=== PATIENT | female | born 1950 | race Caucasian/White ===

== ENCOUNTER 2024-05-15 13:45 | Inpatient (IN) | payer MEDICARE ==
[~2024-05-15] VITALS: Ht 152.4 cm; Wt 56.0 kg
[2024-05-15] MEDS ORDERED: ATOR1TAB19 PO (14:10)
[2024-05-15] MEDS ORDERED: LEVO75TA4 PO (14:10)
[2024-05-15] MEDS ORDERED: AMOX875T2 PO (14:10)
[2024-05-15] MEDS ORDERED: BACTDSTA PO (14:10)
[2024-05-15] MEDS ORDERED: LEVO50TA5 (14:10)
[2024-05-15] MEDS ORDERED: ISOVUE-370 76% 100ML VIAL As Ordered ONE (15:09)
[2024-05-15 15:15] LABS: BASO % 0.2 % (0.0-1.0); EOS % 0.3 % (0.0-3.0); HEMATOCRIT 41.8 % (36.0-47.0); LYMPH # 0.9 10^3/uL (1.5-5.0); LYMPH % 13.3 % (24.0-44.0); MEAN CORPUSCULAR HEMOGLOBIN 28.7 pg (27.0-33.0); MEAN CORPUSCULAR HGB CONC 33.5 g/dl (32.0-36.5); MEAN CORPUSCULAR VOLUME 85.7 fl (80.0-96.0); MONO # 0.9 10^3/uL (0.0-0.8); MONO % 12.9 % (2.0-8.0); NEUTROPHILS # 4.8 10^3/uL (1.5-8.5); NEUTROPHILS % 72.7 % (36.0-66.0); PLATELET COUNT, AUTOMATED 141 10^3/uL (150-450); RED BLOOD COUNT 4.88 10^6/uL (4.00-5.40); WHITE BLOOD COUNT 6.6 10^3/uL (4.0-10.0)
[2024-05-15 15:21] LABS: ERYTHROCYTE SEDIMENTATION RATE 59 mm/hr (0-30)
[2024-05-15 15:25] LABS: ALBUMIN 3.4 G/DL (3.2-5.2); BILIRUBIN,DIRECT 0.1 MG/DL (<0.4); BILIRUBIN,TOTAL 0.5 MG/DL (0.3-1.2); TOTAL PROTEIN 7.2 G/DL (5.7-8.2)
[2024-05-15] MEDS ORDERED: VANCOMYCIN HCL 1,250 MG in NS 250 ML IV ONE (15:35)
[2024-05-15] MEDS: NS IV ONE (15:51)
[2024-05-15] MEDS: ACYCLOVIR IV ONE (15:51)
[2024-05-15 15:52] LABS: CALCIUM LEVEL 9.9 MG/DL (8.3-10.6); CREATININE FOR GFR 1.29 MG/DL (0.55-1.30); GLOMERULAR FILTRATION RATE 42.9 (>39); POTASSIUM SERUM 3.6 MMOL/L (3.5-5.1)
[2024-05-15] MEDS ORDERED: NS IV ONE (16:00)
[2024-05-15] MEDS ORDERED: ACYCLOVIR IV ONE (16:00)
[2024-05-15] MEDS ORDERED: MOM 30ML SUSPENSION UDC PO PRN (16:20)
[2024-05-15] MEDS ORDERED: MAALOX 30 ML SUSP *UDC PO PRN (16:20)
[2024-05-15] MEDS ORDERED: VITAD400CA PO (16:36)
[2024-05-15] MEDS ORDERED: CHEL100T4 PO (16:36)
[2024-05-15] MEDS ORDERED: ONETAB35 PO (16:36)
[2024-05-15] MEDS ORDERED: HOME MED LIST COMPLETE! XX SCH (16:40)
[2024-05-15] MEDS: VANCOMYCIN HCL 750 MG, VIAL MATE ADAPTER 1 EACH in D5W 250 ML IV ONE (17:06)
[2024-05-15 18:15] VITALS: BP 151/85; TEMP 98.8; O2SAT 92
[2024-05-15] MEDS: VANCOMYCIN HCL 500 MG in D5W MINI-BAG PLUS 100 ML IV ONE (18:44)
[2024-05-15 19:27] VITALS: BP 146/87; TEMP 97.9; O2SAT 97
[2024-05-15] MEDS: ATORVASTATIN 10 MG TAB PO SCH (20:07)
[2024-05-15] MEDS: HEPARIN SOD (PORCINE) 5000UNITS/ML 1ML VIAL/SYRINGE SC SCH (20:07)
[2024-05-15] MEDS: ARTIFICIAL TEARS DROPS 15ML BTL (VISINE DRY RELIEF) OD SCH (20:08)
[2024-05-16 04:17] VITALS: BP 144/87; TEMP 97.3; O2SAT 94
[2024-05-16] MEDS: NS IV SCH (05:33)
[2024-05-16] MEDS: ACYCLOVIR IV SCH (05:33)
[2024-05-16] MEDS: LEVOTHYROXINE 75MCG TABLET (0.075MG) PO SCH (05:33)
[2024-05-16] MEDS: ACETAMINOPHEN TAB 650MG DOSE (2X325MG) PO PRN (05:44)
[2024-05-16 06:08] LABS: CALCIUM LEVEL 9.4 MG/DL (8.3-10.6); CREATININE FOR GFR 1.02 MG/DL (0.55-1.30); GLOMERULAR FILTRATION RATE 56.2 (>39); MAGNESIUM LEVEL 2.2 MG/DL (1.8-2.4); POTASSIUM SERUM 3.8 MMOL/L (3.5-5.1)
[2024-05-16 06:19] LABS: PROCALCITONIN 0.37 ng/ml
[2024-05-16 07:38] LABS: VANCOMYCIN RANDOM 11.4 UG/ML
[2024-05-16] MEDS: VITAMIN D (CHOLECALCIFEROL) 400 INTERNATIONAL UNITS TAB PO SCH (08:26)
[2024-05-16] MEDS: VANCOMYCIN HCL 1,000 MG, VIAL MATE ADAPTER 1 EACH in D5W 250 ML IV SCH (08:27)
[2024-05-16 12:00] VITALS: BP 121/71; TEMP 98.1; O2SAT 96
[2024-05-16 20:00] VITALS: BP 123/68; TEMP 100.4; O2SAT 95
[2024-05-16 23:00] VITALS: TEMP 98.1
[2024-05-17 04:00] VITALS: BP 126/70; TEMP 97.7; O2SAT 92
[2024-05-17] MEDS: ACYCLOVIR 500 MG in D5W MINI-BAG PLUS 100 ML IV SCH (05:53)
[2024-05-17] MEDS: VANCOMYCIN HCL 750 MG, VIAL MATE ADAPTER 1 EACH in D5W 250 ML IV SCH (08:14)
[2024-05-17 12:00] VITALS: BP 128/75; TEMP 98.4; O2SAT 94
[2024-05-17 20:00] VITALS: BP 127/69; TEMP 99.1; O2SAT 96
[2024-05-18 05:29] VITALS: BP 151/83; TEMP 98.6; O2SAT 95
[2024-05-18 05:34] LABS: BASO % 0.7 % (0.0-1.0); EOS # 0.2 10^3/uL (0.0-0.5); EOS % 5.8 % (0.0-3.0); HEMATOCRIT 34.7 % (36.0-47.0); HEMOGLOBIN 11.4 g/dl (12.0-15.5); LYMPH # 1.5 10^3/uL (1.5-5.0); LYMPH % 36.1 % (24.0-44.0); MEAN CORPUSCULAR HEMOGLOBIN 28.6 pg (27.0-33.0); MEAN CORPUSCULAR HGB CONC 32.9 g/dl (32.0-36.5); MEAN CORPUSCULAR VOLUME 87.2 fl (80.0-96.0); MONO # 0.5 10^3/uL (0.0-0.8); MONO % 11.1 % (2.0-8.0); NEUTROPHILS # 1.9 10^3/uL (1.5-8.5); NEUTROPHILS % 45.6 % (36.0-66.0); PLATELET COUNT, AUTOMATED 130 10^3/uL (150-450); RED BLOOD COUNT 3.98 10^6/uL (4.00-5.40); WHITE BLOOD COUNT 4.1 10^3/uL (4.0-10.0)
[2024-05-18 06:24] LABS: BLOOD UREA NITROGEN 23 MG/DL (9-23); CALCIUM LEVEL 8.6 MG/DL (8.3-10.6); CARBON DIOXIDE LEVEL 29 MMOL/L (20-31); CHLORIDE LEVEL 106 MMOL/L (98-107); CREATININE FOR GFR 0.79 MG/DL (0.55-1.30); GLOMERULAR FILTRATION RATE > 60.0 (>39); GLUCOSE, FASTING 98 MG/DL (74-106); MAGNESIUM LEVEL 1.9 MG/DL (1.8-2.4); POTASSIUM SERUM 3.9 MMOL/L (3.5-5.1); SODIUM LEVEL 139 MMOL/L (136-145)
[2024-05-18 11:30] VITALS: BP 150/83; TEMP 98.8; O2SAT 96
[2024-05-18 19:26] VITALS: BP 144/71; TEMP 98.1; O2SAT 97
[2024-05-19 03:57] VITALS: BP 154/82; TEMP 98.1; O2SAT 97
[2024-05-19 07:22] LABS: BASO % 0.2 % (0.0-1.0); EOS # 0.2 10^3/uL (0.0-0.5); EOS % 5.7 % (0.0-3.0); HEMATOCRIT 34.3 % (36.0-47.0); HEMOGLOBIN 11.2 g/dl (12.0-15.5); LYMPH # 1.2 10^3/uL (1.5-5.0); LYMPH % 28.8 % (24.0-44.0); MEAN CORPUSCULAR HEMOGLOBIN 28.6 pg (27.0-33.0); MEAN CORPUSCULAR HGB CONC 32.7 g/dl (32.0-36.5); MEAN CORPUSCULAR VOLUME 87.5 fl (80.0-96.0); MONO # 0.4 10^3/uL (0.0-0.8); MONO % 8.5 % (2.0-8.0); NEUTROPHILS # 2.4 10^3/uL (1.5-8.5); NEUTROPHILS % 55.6 % (36.0-66.0); PLATELET COUNT, AUTOMATED 145 10^3/uL (150-450); RED BLOOD COUNT 3.92 10^6/uL (4.00-5.40); WHITE BLOOD COUNT 4.2 10^3/uL (4.0-10.0)
[2024-05-19 07:48] LABS: BLOOD UREA NITROGEN 16 MG/DL (9-23); CALCIUM LEVEL 8.7 MG/DL (8.3-10.6); CARBON DIOXIDE LEVEL 29 MMOL/L (20-31); CHLORIDE LEVEL 110 MMOL/L (98-107); CREATININE FOR GFR 0.75 MG/DL (0.55-1.30); GLOMERULAR FILTRATION RATE > 60.0 (>39); GLUCOSE, FASTING 104 MG/DL (74-106); MAGNESIUM LEVEL 1.9 MG/DL (1.8-2.4); POTASSIUM SERUM 3.7 MMOL/L (3.5-5.1); SODIUM LEVEL 143 MMOL/L (136-145)
[2024-05-19] MEDS: VANCOMYCIN HCL 500 MG in D5W MINI-BAG PLUS 100 ML IV SCH (09:28)
[2024-05-19 12:00] VITALS: BP 145/80; TEMP 97.7; O2SAT 96
[2024-05-19 19:37] VITALS: BP 154/87; TEMP 98.2; O2SAT 97
[2024-05-19] MEDS: DOXYCYCLINE HYCLATE 100MG TABLET PO SCH (20:04)
[2024-05-20 04:09] VITALS: BP 154/86; TEMP 98.1; O2SAT 97
[2024-05-20 07:28] LABS: BASO % 0.4 % (0.0-1.0); EOS # 0.2 10^3/uL (0.0-0.5); EOS % 5.1 % (0.0-3.0); HEMATOCRIT 34.1 % (36.0-47.0); HEMOGLOBIN 11.1 g/dl (12.0-15.5); LYMPH # 1.1 10^3/uL (1.5-5.0); LYMPH % 22.4 % (24.0-44.0); MEAN CORPUSCULAR HEMOGLOBIN 28.8 pg (27.0-33.0); MEAN CORPUSCULAR HGB CONC 32.6 g/dl (32.0-36.5); MEAN CORPUSCULAR VOLUME 88.6 fl (80.0-96.0); MONO # 0.5 10^3/uL (0.0-0.8); MONO % 9.7 % (2.0-8.0); NEUTROPHILS # 2.9 10^3/uL (1.5-8.5); NEUTROPHILS % 60.9 % (36.0-66.0); PLATELET COUNT, AUTOMATED 143 10^3/uL (150-450); RED BLOOD COUNT 3.85 10^6/uL (4.00-5.40); WHITE BLOOD COUNT 4.7 10^3/uL (4.0-10.0)
[2024-05-20 07:48] LABS: VANCOMYCIN LEVEL TROUGH 13.9 UG/ML (10.0-20.0)
[2024-05-20 07:51] LABS: BLOOD UREA NITROGEN 16 MG/DL (9-23); CALCIUM LEVEL 8.9 MG/DL (8.3-10.6); CARBON DIOXIDE LEVEL 27 MMOL/L (20-31); CHLORIDE LEVEL 108 MMOL/L (98-107); CREATININE FOR GFR 0.67 MG/DL (0.55-1.30); GLOMERULAR FILTRATION RATE > 60.0 (>39); GLUCOSE, FASTING 94 MG/DL (74-106); MAGNESIUM LEVEL 1.8 MG/DL (1.8-2.4); POTASSIUM SERUM 5.2 MMOL/L (3.5-5.1); SODIUM LEVEL 140 MMOL/L (136-145)
[2024-05-20] MEDS ORDERED: VANCOMYCIN HCL 750 MG, VIAL MATE ADAPTER 1 EACH in D5W 250 ML IV SCH (08:00)
[2024-05-20] MEDS: ACYCLOVIR 200 MG CAPSULE PO SCH (08:07)
[2024-05-20 12:00] VITALS: BP 155/86; TEMP 97.7; O2SAT 97
[2024-05-20] MEDS ORDERED: DOXY100T PO (12:43)
[2024-05-20] MEDS ORDERED: PROBCAP14 PO (12:43)
[2024-05-20] MEDS ORDERED: ACYC200C8 PO (12:43)
== END 2024-05-20 14:10 | disposition home or self-care (01) | DRG 603 ==
LOC: M ED 13:45 → M ED INP 16:18 → M MS5PR 18:15
PROVIDERS: ADMIT Student in an Organized Health Care Education/Training Program; ATTEND Student in an Organized Health Care Education/Training Program
DX: L03.211 Cellulitis of face (principal); B02.30 Zoster ocular disease, unspecified; E03.9 Hypothyroidism, unspecified; E78.5 Hyperlipidemia, unspecified; Z79.890 Hormone replacement therapy; Z79.899 Other long term (current) drug therapy

== ENCOUNTER 2024-06-06 14:34 | Emergency (ER) | payer MEDICARE ==
[~2024-06-06] VITALS: Ht 162.6 cm; Wt 58.4 kg
[2024-06-06 14:34] VITALS: BP 161/74; TEMP 98.2; O2SAT 98
[~2024-06-06 14:34] MED LIST: ACYC200C8 PO; AMOX875T2 PO; ATOR1TAB19 PO; BACTDSTA PO; CHEL100T4 PO; DOXY100T PO; LEVO50TA5; LEVO75TA4 PO; ONETAB35 PO; PROBCAP14 PO; VITAD400CA PO
[2024-06-06] MEDS ORDERED: GABA-1171 (14:54)
[2024-06-06] MEDS ORDERED: PREDOPD (14:54)
[2024-06-06] MEDS ORDERED: LEVO50TA5 (14:54)
[2024-06-06] MEDS ORDERED: ACYC1TAB4 (14:54)
[2024-06-06] MEDS ORDERED: HYDR-3713 PO (17:33)
== END 2024-06-06 17:47 | disposition home or self-care (01) ==
LOC: M ED 14:34
DX: B02.29 Other postherpetic nervous system involvement (principal); I11.9 Hypertensive heart disease without heart failure; E03.9 Hypothyroidism, unspecified; Z79.899 Other long term (current) drug therapy